=== PATIENT | male | born 1975 | race Asian ===

== ENCOUNTER 2020-07-18 21:40 | Emergency (ER) | payer OTHER ==
[~2020-07-18] VITALS: Ht 170.2 cm; Wt 76.7 kg
[2020-07-18 21:52] VITALS: Ht 170.2 cm; Wt 76.7 kg
[2020-07-18 23:47] VITALS: BP 140/98
== END 2020-07-18 23:47 | disposition home or self-care (01) ==
LOC: ED 21:40
DX: S43.004A Unspecified dislocation of right shoulder joint, initial encounter (principal); I10 Essential (primary) hypertension; X58.XXXA Exposure to other specified factors, initial encounter; Y93.89 Activity, other specified; Y92.89 Other specified places as the place of occurrence of the external cause; Y99.8 Other external cause status
CPT/HCPCS: J1885; J3490; Q0092